=== PATIENT | female | born 2000 | race Caucasian/White ===

== ENCOUNTER 2021-04-18 00:56 | Emergency (ER) | payer BC, SELFPAY ==
[2021-04-18] VITALS (17 sets, daily range): BP systolic 96–122; BP diastolic 64–91; PULSE 96; RESP 16; TEMP 36.6–36.8; O2SAT 98–100
--- NOTE | ~2021-04-18 | CT_ITS ---
EXAMINATION: CT abdomen pelvis w con DATE: 04/18/2021 03:12 INDICATION: Right upper quadrant abdominal pain. Epigastric abdominal pain. Nausea and vomiting. TECHNIQUE: Computed tomography (CT) of the abdomen and pelvis was performed with 100 mL Omnipaque 350 intravenous contrast. Automated exposure control and iterative reconstruction technique were employe d. The dose-length product was 1070.30 mGy-cm. COMPARISON: None. FINDINGS: The visualized portions of the lung bases demonstrate minimal atelectasis. There is a 4 mm nodule left lower lobe, likely benign. No pleural effusion. The heart size is normal. No pericardial effusion. The liver, gallbladder, spleen, pancreas, adrenal glands, and kidneys are normal. There are no dilated loops of bowel. The appendix is normal. There are no pathologically enlarged lymph nodes. There is no free intraperitoneal fluid. There is mild thoracolumbar spondylosis. IMPRESSION: 1. No etiology for the patient's symptoms. Reviewed, dictated and finalized at location A. LE AIR VALVE TESTER
--- NOTE | 2021-04-18 01:13 | ED.ABDPAIN ---
HPI - Abdominal Pain General Chief Complaint: Abdominal Pain Stated Complaint: Abd pain, n/v Time Seen by Provider: 04/18/21 00:58 Source: patient Mode of arrival: ambulatory Limitations: no limitations History of Present Illness HPI narrative: This is a 21-year-old female who presents to the ED with complaints of sharp cramping epigastric and RUQ abdominal pain that began around 11 PM last night. Patient reports she has had intermittent episodes of this pain over the past 2 months, which have been increasing in frequency and severity. She states she was seen at an outside ED in December 2020 at which point cholecystitis, cholelithiasis, and appendicitis were ruled out. She has tried changing her diet recently without relief. She denies any aggravating or relieving factors to the pain. She has not taken anything for the pain tonight. She also reports having nausea, vomiting, diarrhea. She notes her stool has been very dark brown in color. She denies any bright red rectal bleeding, rectal pain, dysuria, hematuria, urinary frequency, fever, chills, back pain. Related Data Allergies Allergy/AdvReac Type Severity Reaction Status Date / Time No Known Allergies Allergy Verified 04/18/21 01:36 Review of Systems Review of Systems: CONSTITUTIONAL: Denies fever, chills, or sweats. CARDIOVASCULAR: Denies chest pain. GASTROINTESTINAL: Reports epigastric and RUQ abdominal pain, nausea, vomiting, diarrhea. Denies recent constipation, bright red rectal bleeding, rectal pain. GENITOURINARY: Denies dysuria or hematuria. MUSCULOSKELETAL: Denies back pain. NEUROLOGIC: Denies headache, numbness, or weakness. All systems reviewed & are unremarkable except as noted in HPI and below PMFSH Past Medical History Medical History (Updated 04/18/21 @ 04:04 by Carla Solis PA-C) No pertinent past medical history Surgical History Surgical History (Updated 04/18/21 @ 02:01 by Carla Solis PA-C) History of shoulder surgery Social History Social History (Updated 04/18/21 @ 02:01 by Calra Solis PA-C) Smoking status: Never smoker Exam Narrative: GENERAL: Well appearing, well-nourished, non-toxic, in no acute distress. HEAD: Normocephalic, atraumatic. NECK: Supple. No adenopathy, no masses. RESPIRATORY: Airway patent, respirations nonlabored. Clear to auscultation bilaterally, no rales, rhonchi, wheezing. CARDIOVASCULAR: Regular rate and rhythm without murmurs, rubs, or gallops. ABDOMINAL: Soft, moderate tenderness to epigastrium and RUQ, no rebound/guarding, nondistended, no hepatosplenomegaly. Normoactive BS. No CVA tenderness to percussion. MUSCULOSKELETAL: Moves all extremities. Strength/ROM intact without gross deformities or TTP. Left foot in walking boot due to recent history of fracture. SKIN: Warm, dry, normal color. No rashes. NEURO: A&O X3. Speech clear. Cranial nerves II-XII grossly intact. Steady gait. No ataxic movements. PSYCHIATRIC: Appropriate mood and affect. Normal interaction. Course Vital Signs Vital signs: Vital Signs Temperature 98.3 F 04/18/21 01:01 Pulse Rate 96 04/18/21 01:01 Respiratory Rate 16 04/18/21 01:01 Blood Pressure 122/91 H 04/18/21 01:01 Pulse Oximetry 98 04/18/21 01:01 Temperature 98.3 F 04/18/21 01:01 Pulse Rate 96 04/18/21 01:01 Respiratory Rate 16 04/18/21 01:01 Blood Pressure 113/77 04/18/21 02:10 Pulse Oximetry 99 04/18/21 02:33 MDM - Abdominal Pain MDM Narrative Medical decision making narrative: Patient's symptom history, pain, and clinical examination consistent with biliary colic. She has had intermittent episodes of right upper quadrant and epigastric pain over the last couple months. Patient report having several episodes of vomiting prior to arrival to the ED. Symptoms improved with supportive therapy. ED work-up fairly unremarkable. Mild leukocytosis with left shift, likely a stress reaction from vomiting. CT scan without acute findings.
[2021-04-18] MEDS: SODIUM CHLORIDE 0.9% IV 1,000 ML 999 ML IV CONT (01:36)
[2021-04-18] MEDS: ONDANSETRON INJ 4 MG/2 ML VIAL IV PUSH (01:36)
[2021-04-18] MEDS: MORPHINE SULFATE (*CRX) 4 MG/ML INJ IV PUSH (01:37)
[2021-04-18 01:39] LABS: Basophils Absolute Auto 0.1 K/mm3 (0.0-0.1); Basophils Percent Auto 0.4 % (0.2-1.2); Eosinophils Absolute Auto 0.1 K/mm3 (0-0.3); Eosinophils Percent Auto 0.5 % (0-4.4); Hematocrit 38.3 % (37.0-47.0); Immature Granulocyte Absolute 0.03 K/mm3 (0.00-0.031); Immature Granulocyte Percent A 0.2 % (0-0.5); Lymphocytes Absolute Auto 1.83 K/mm3 (0.9-3.2); Mean Corpuscular HGB Conc 33.9 g/dl (32-36); Mean Corpuscular Volume 85.3 fl (80-100); Mean Platelet Volume 10.6 fl (7.4-10.4); Monocytes Absolute Auto 0.9 K/mm3 (0.1-0.6); Monocytes Percent Auto 7.4 % (2.6-8.5); Neutrophils Absolute Auto 9.4 K/mm3 (1.3-6.7); Neutrophils Percent Auto 76.5 % (45.5-73.1); Platelet Count Result 290 k/mm3 (150-375); Red Blood Count 4.49 M/mm3 (4.2-5.4); Red Cell Distribution Width 12.5 % (11.5-14.5); White Blood Count 12.2 K/mm3 (4.5-10.0)
[2021-04-18 01:44] LABS: Add Urine Microscopic? YES; Appearance Urine Cloudy (Clear); Bilirubin Urine Negative (Negative); Blood Urine 1+ (Negative); Color Urine Yellow (Yellow); Glucose Urine UA Negative (Negative); Ketones Urine Trace mg/dL (Negative); Leukocyte Esterase Ur Negative LEU/UL (Negative); Mucus Urine Rare /lpf; Nitrate Urine Negative (Negative); Protein Urine Negative (Negative); Specific Grav Ur 1.026 (1.001-1.035); Squamous Epithelial Cell Urine Occasional /hpf (Few); Urobilinogen Urine Negative mg/dL (<2.0); WBC Urine 0-3 /hpf
[2021-04-18 01:51] LABS: Alanine Aminotransferase 26 U/L (4-35); Albumin Level 4.9 g/dL (3.5-5.1); Alkaline Phosphatase 86 U/L (38-126); Anion Gap 10 mmol/L (8-16); Aspartate Amino Transferase 28 U/L (14-36); Bilirubin,Total 0.5 mg/dL (0.2-1.3); Blood Urea Nitrogen 10 mg/dL (7-17); Calcium 8.8 mg/dL (8.4-10.2); Carbon Dioxide 21 mmol/L (22-30); Chloride 109 mmol/L (98-107); Estimated CRCL calculation 133 ml/min; Estimated Glomerular Filt Rate > 60; Glucose 104 mg/dL (65-110); Lipase 48 U/L (23-300); Potassium 3.9 mmol/L (3.4-5.0); Sodium 140 mmol/L (137-145)
== END 2021-04-18 04:32 | disposition home or self-care (01) ==
PROVIDERS: Physician Assistant; Emergency Provider Emergency Medicine
DX: K80.50 Calculus of bile duct without cholangitis or cholecystitis without obstruction (principal)
CPT/HCPCS: 36415; 74177; 80053; 81001; 81025; 83690; 85025; 96361; 96365; 96375; 99284; J0131; J2270; J2405; J7030; Q9967

== ENCOUNTER 2021-04-21 12:05 | Outpatient (CLI) | payer BC, SELFPAY ==
--- NOTE | ~2021-04-21 | US_ITS ---
EXAMINATION: US right upper quadrant DATE: 04/21/2021 12:42 INDICATION: Right upper quadrant pain TECHNIQUE: Multiple grayscale and Doppler ultrasound images of the abdomen were obtained. COMPARISON: CT, 04/18/2021 FINDINGS: The head and body of the pancreas are normal. The pancreatic tail is obscured by bowel gas. The liver is normal with normal echogenicity and echotexture. No surface nodularity. Normal hepatope vincent flow in the main portal vein. The gallbladder is normal with no abnormal wall thickening, pericho lecystic fluid or stones. The normal common bile duct measures 3 mm. There was no sonographic Wilson sign. IMPRESSION: 1. No sonographic correlate for the patient's symptoms. Reviewed, dictated and finalized at location B. PING MACHINE OPERATOR
== END 2021-04-21 12:06 | disposition home or self-care (01) ==
LOC: ANHIMG 12:08
PROVIDERS: PCP Emergency Medicine; Visit Provider Emergency Medicine
DX: R10.11 Right upper quadrant pain (principal); D72.829 Elevated white blood cell count, unspecified
CPT/HCPCS: 76705

== ENCOUNTER 2021-05-14 10:28 | Outpatient (CLI) | payer BC, SELFPAY ==
[2021-05-14 10:57] LABS: Amylase 71 U/L (30-110)
== END 2021-05-14 10:29 | disposition home or self-care (01) ==
LOC: ANHSURGERY 10:31
PROVIDERS: PCP Emergency Medicine; Visit Provider Surgery
DX: Z01.812 Encounter for preprocedural laboratory examination (principal); K81.1 Chronic cholecystitis
CPT/HCPCS: 36415; 82150; 86850; 86900; 86901

== ENCOUNTER 2021-05-17 02:27 | Day surgery (SDC) | payer BC, SELFPAY ==
[2021-05-13 13:42] VITALS: BMI 31.8
--- NOTE | 2021-05-13 13:56 | PC.NURSE ---
Report to the Outpatient Waiting Room, entrance under the green pavilion located off [facility], at time __0930 on date _05/17/2021 . OR Time: _1130 . - You and your visitor will be asked a series of questions to screen for COVID 19 for your protection. - A mask is required within the hospital. Preoperative COVID Testing Requirements: No COVID Test needed if: (proof is required; if not received patient will have Rapid Test prior to entry) - Patient has received COVID Vaccine at least 14 days prior to procedure date. Patients may have clear liquids (water, carbonated beverages, clear teas, apple juice) until 3 hours prior to surgery with a maximum of 20 ounces. - No food from midnight until time of surgery. Take the following medications with a SIP of water the morning of surgery: Tylenol or Zofran, if needed Please no make-up, nail divehi, hairspray, perfume, deodorant, or body powder the day of surgery. No jewelry (including any body piercings) or valuables the day of surgery, leave them at home. Please take a shower the morning of, surgery with an antibacterial soap such as Chlorhexidine Gluconate 4% (Hibiclens)-may be purchased over the counter. Wear comfortable, loose fitting clothing. - Jewelry must be removed prior to entering the operating room. Rings and piercings that are not removed may be cut off. - The hospital will not accept responsibility for valuables. - Please leave all valuables, including medications, at home the day of surgery. If you are going home after surgery, a licensed stage driver must drive you home. - NO public transportation without another adult. - We recommend that an adult stay with you for 24 hours following discharge. - We also recommend that you do not drive, make important decision, drink alcoholic beverages, or take any drugs that were not prescribed by your health care provider for at least 24 hours after your discharge time. One visitor will be allowed to accompany the patient into the hospital. Patients visitor will be instructed to remain with patient at all times or leave the building. We will allow the visitor to come back to the postoperative area when patient is ready. Follow any additional instructions given to you from your surgeon. Telephone instructions given to patient and asked if any additional questions and then verbalized understanding. Patient advised to call surgeon office or pre surgery nurse liaison [phone] if any additional questions.
[2021-05-17] VITALS (10 sets, daily range): BP systolic 95–123; BP diastolic 45–81; PULSE 62–87; RESP 14–20; TEMP 36.4–37.2; O2SAT 96–100
[2021-05-17] MEDS: ACETAMINOPHEN 500 MG TABLET 1000 MG PO (10:25)
[2021-05-17] MEDS: LACTATED RINGERS 1,000 ML 30 ML IV CONT ×2 (10:26→12:15)
[2021-05-17] MEDS: KETOROLAC 15 MG/ML VIAL (*BKC) IV PUSH (10:26)
--- NOTE | 2021-05-17 10:31 | WPDANESEPPF ---
Anes - Initial Pre Proc Eval Procedure: Operation Date: 05/17/21 11:30 Proposed Procedures p Laparoscopic Cholecystectomy - Kimmy Colon MD Date/Time: 05/17/21 10:31 Surgeon: Kimmy Colon MD Pre Op Diagnosis: Chronic Cholecystitis Patient Data Age: 21 Gender: F Height: 1.6 m Weight: 81.65 kg Allergies Allergy/AdvReac Type Severity Reaction Status Date / Time No Known Allergies Allergy Verified 04/28/21 09:23 Home Medications Medication Instructions Recorded Confirmed Type ondansetron 4 mg PO Q8H PRN #15 tablet 04/18/21 05/13/21 Rx acetaminophen 325 mg tablet 325 mg PO Q6H PRN 04/23/21 05/13/21 History Patient hx anesthesia problems: post op nausea/vomiting Family hx anesthesia problems: none Results Review: All pre-operative results and documents have been reviewed as part of the pre-operative evaluation. [facility] Past Medical History Medical History Anxiety No pertinent past medical history Surgical History Surgical History H/O knee surgery Bilateral History of ear surgery Tubes 2008 History of shoulder surgery Family History Family History Mother Diabetes mellitus Multiple sclerosis Other CHF (congestive heart failure) Lung cancer Social History Social History Smoking status: Never smoker Second hand tobacco smoke exposure: No Alcohol intake: current Alcohol use details: socially Substance use: never Living arrangements: with roommate(s) Additional living arrangements comments: [place]IVES [place] W/ROOMMATES Spiritual care concerns: No Anes - Eval Final PreProcedure Day of Procedure 05/17/21 10:31 Patient weight: obese Heart: regular rate and rhythm Lungs: clear to auscultation Airway: Mallampati scale class II Neurological: alert and oriented Last oral intake: >/= 8 hours ASA classification: II Emergent: no Anesthetic plan: proceed Anesthesia type and monitoring: general ETT and standard monitoring Results Review: All pre-operative results and documents have been reviewed as part of the pre-operative evaluation. Informed Consent: The patient's anesthetic plan and its attendant risks and benefits were discussed with the patient/family/POA. Questions were solicited and answers provided to the satisfaction of the patient/family/POA.
--- NOTE | 2021-05-17 10:36 | WPDHPUPDATE1 ---
History and Physical Update Update Date/Time: 05/17/21 10:36 History and Physical has been reviewed, including an updated exam of the patient. There are NO changes in the patient's condition. Risks, benefits, and alternatives have been discussed and questions answered. Patient agrees to proceed with procedure.
[2021-05-17] MEDS: SCOPOLAMINE 1.5 MG PATCH TRANSDERM (10:45)
[2021-05-17] MEDS: ceFAZolin 2 GM/D5W 50 ML 2 GM/50 ML BAG IVPB (10:47)
--- NOTE | 2021-05-17 11:29 | W.PM.PROC2 ---
Procedure Note - Detailed Date of Procedure 05/17/21 Pre-op Diagnosis Chronic Cholecystitis Post-op Diagnosis Same Procedure Performed Laparoscopic cholecystectomy Surgeon Kimmy Colon MD Anesthesia General Indications 21 y/o F c chronic cholecystitis Findings chronic cholecystitis Description of Procedure The patient was taken to the operating room placed in the supine position. After adequate induction of general anesthesia, the patient was prepped and draped in normal sterile fashion. A time-out was then performed to verify the patient's identity as well as the procedure being performed. I then made a 5 mm incision in the infraumbilical region. Through this, a Veress needle was placed into the peritoneal cavity and CO2 gas was then insufflated. After adequate pneumoperitoneum was achieved, the Veress needle was removed and a 5 mm optiview trocar was placed through this incision under direct visualization. I then placed the laparoscope through this trocar site and under direct visualization placed a further 12 mm subxiphoid port as well as 2 additional 5 mm ports in the right upper abdomen. The gallbladder was then identified and was noted to be moderately inflamed and distended. I was able to place a grasper at the dome of the gallbladder and this was retracted anterior and cephalad up over the liver. A 2nd retractor was then placed at the infundibulum and retracted laterally, this allowed visualization of the triangle of Calot. I then was able to visualize the cystic duct in its entirety from its proximal insertion into the gallbladder, to its distal junction with the common hepatic/common bile duct junction. At this point, I carefully skeletonized the proximal cystic duct with the [place] dissector. I then clipped and transected the proximal cystic duct. Next I visualized the cystic artery. Again the artery was skeletonized, clipped, and transected. I then used the Bovie cautery to take down the peritoneal attachments of the gallbladder off the liver bed. Once the gallbladder specimen was completely detached, an endo-pouch was placed through the 12 mm port site. I then placed the gallbladder specimen into the Endo pouch and removed the endo-pouch from the 12 mm port site. The specimen will now be sent to pathology for further review. I then copiously irrigated the right upper quadrant. Hemostasis was noted in the liver bed, the clips were noted to be in good position on both the cystic duct stump and the cystic artery stump. No other pathology was noted in the right upper quadrant. I then moved the laparoscope to the subxiphoid port. No iatrogenic injury or other pathology was noted in the lower abdomen. I then closed the 12 mm trocar site under direct visualization using the Phill cone and 0 Vicryl suture. At this point, the abdomen was desufflated and all ports removed. All port sites were then closed with 4.O Monocryl subcuticular sutures. Dermabond was placed on each incision. The patient tolerated the procedure well, was extubated in the operating room postoperative and will be transferred to the recovery room in stable condition Estimated Blood Loss 5 Drains No Packing No Pathology Yes Complications No immediate complications Condition Stable Disposition PACU
[2021-05-17] MEDS: MEPERIDINE HCL INJ (*CRX) 50 MG/ML AMPUL 25 MG IV PUSH (11:45)
[2021-05-17] MEDS: fentaNYL CITRATE INJ (*CRX) 100 MCG/2 ML VIAL 25 MCG IV PUSH ×4 (12:08→12:25)
[2021-05-17] MEDS: ONDANSETRON INJ 4 MG/2 ML VIAL IV PUSH (12:47)
== END 2021-05-17 14:17 | disposition home or self-care (01) ==
PROVIDERS: PCP Emergency Medicine; Visit Provider Surgery
PROC: 0FT44ZZ Resection of Gallbladder, Percutaneous Endoscopic Approach (ICD-10-PCS; CPT 47562; principal; 2021-05-17 11:30)
DX: K81.1 Chronic cholecystitis (principal); E66.9 Obesity, unspecified; Z68.33 Body mass index [BMI] 33.0-33.9, adult
CPT/HCPCS: 47562; 36415; 82150; 86850; 86900; 86901; 88304; A9270; J0690; J1100; J1885; J2175; J2250; J2270; J2405; J2704; J3010; J7030; J7120

== ENCOUNTER 2023-09-06 11:32 | Emergency (ER) | payer OTHER, BC, SELFPAY ==
--- NOTE | ~2023-09-06 | XR_ITS ---
XR hand RT min 3V 09/06/2023 12:21 INDICATION: Right hand pain PROCEDURE: 3 views right hand COMPARISON: No prior studies for comparison. FINDINGS: Fracture, dislocation or subluxation is not identified. The soft tissues appear within norm al limits. No foreign bodies are identified. IMPRESSION: 1: NO ACUTE BONE OR JOINT ABNORMALITY IDENTIFIED. Reviewed, dictated and finalized at location B.
[2023-09-06 11:51] VITALS: BP 114/75; PULSE 76; RESP 16; TEMP 36.6; O2SAT 99
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
== END 2023-09-06 13:14 | disposition home or self-care (01) ==
PROVIDERS: Emergency Provider Nurse Practitioner Family; Referring Provider Emergency Medicine
DX: S69.91XA Unspecified injury of right wrist, hand and finger(s), initial encounter (principal); Y08.09XA Assault by strike by other specified type of sport equipment, initial encounter; Y99.0 Civilian activity done for income or pay
CPT/HCPCS: 73130; 99213; G0463

== ENCOUNTER 2024-12-03 15:55 | Emergency (ER) | payer OTHER, SELFPAY ==
--- NOTE | ~2024-12-03 | XR_ITS ---
EXAMINATION: XR foot LT min 3V, 12/03/2024 16:03 CDT HISTORY: injury two weeks ago/pain distal foot COMPARISON: No comparisons available. Findings: No acute fracture or malalignment. No significant degenerative changes. Soft tissues unremarkable. Impression: No acute fracture or malalignment. Reviewed, dictated and finalized at location P. Impression: No acute fracture or malalignment.
[2024-12-03 16:00] VITALS: BP 126/83; PULSE 75; RESP 20; TEMP 36.6; O2SAT 100
--- NOTE | 2024-12-03 16:04 | ED_ITS ---
HPI - Extremity Injury (Lower) General Chief Complaint: Extremity Injury, Lower Stated Complaint: L foot pain Time Seen by Provider: 12/03/24 16:16 Source: patient and RN notes reviewed Mode of arrival: ambulatory Limitations: no limitations History of Present Illness HPI Narrative: 24-year-old female presents with concern for left foot pain. Reports 2 weeks ago she hyperflexed the foot since then has been having pain to the dorsal foot near the digits. She reports pain at baseline and worsening pain with flexion or weight-bearing. She has been taking ibuprofen, elevating and using ice without relief. She denies decreased strength, sensation. MD complaint: foot injury Related Data Home Medications ?Medication ?Instructions ?Recorded ?Confirmed ?Last Taken ?Type bupropion HCl 150 mg 24 hr tablet, mg PO 12/03/24 Unk nown History extended release escitalopram oxalate 20 mg tablet mg 12/03/24 Unknown History Allergies Allergy/AdvReac Type Severity Reaction Status Date / Time No Known Allergies Allergy Verified 12/03/24 16:09 Review of Systems Review of Systems: CONSTITUTIONAL: Denies malaise, chills, sweats, or fever. SKIN: Denies rash or itching, open skin, laceration, abrasion, redness, warmth, swelling. MUSCULOSKELETAL: Reports left foot pain NEUROLOGIC: Denies numbness, weakness All systems reviewed & are unremarkable except as noted in HPI and below PMFSH Past Medical History Medical History Anxiety No pertinent past medical history Surgical History Surgical History H/O knee surgery Bilateral History of ear surgery Tubes 2008 History of shoulder surgery Family History Family History Mother Diabetes mellitus Multiple sclerosis Other CHF (congestive heart failure) Lung cancer Social History Social History Smoking status: Never smoker Second hand tobacco smoke exposure: No Alcohol intake: former Alcohol use details: socially Substance use: never Living arrangements: with roommate(s) Additional living arrangements comments: LIVES IN [place] W/ROOMMATES Occupation/Education: student Spiritual care concerns: No Comments At time of signature, agree with nursing past medical, surgical, social and family history. There is no relevant family history pertinent to the presenting complaint Exam Narrative: GENERAL: Well-appearing, well-nourished, and in no acute distress. HEAD: Normocephalic, atraumatic. EYES: PERRLA, conjunctivae clear NECK: Supple. CHEST: Speaks in full sentences. No respiratory distress. HEART: Regular rate and rhythm. Normal and equal peripheral pulses. EXTREMITIES: Left foot and digits have grossly normal strength and sensation, grossly normal range of motion. No edema or ecchymosis. Normal sensation with sensitivity to light touch and pain. Dorsal foot tenderness. No open wounds, no skin tenting, no devitalized tissue or atrophy, no trophic changes, no obvious deformity, alignment normal, nearby joints and structures intact. Distal pulses palpable and equal bilaterally, skin warm, dry, pink. Capillary refill less than 3 seconds. SKIN: Warm, dry, no rash. NEURO: Alert and oriented x3. PSYCH: Normal mood and affect Course Course Emergency Course: Patient is aware of diagnosis, understands and agrees to treatment plan. Anticipatory guidance given. Patient agrees to follow-up as directed and is aware of reasons to seek care at the emergency department. Portions of this record may have been created with voice recognition software Level of Care: Express Care Visit Vital Signs Vital signs: Reviewed. MDM - Extremity Injury (Lower) MDM Narrative Medical decision making narrative: The patient was evaluated by myself in the express care. History is obtained from patient who is an independent historian and physical exam was performed.? Available medical records were reviewed at this time. ? Exam findings show no acute concerns or changes; patient is non-toxic appearing and is in no distress. Patient is appropriate for outpatient treatment and follow-up. ? I have evaluated and discussed social determinants of health with the patient that could potentially impact subsequent diagnosis and treatment plans. ? Patients injury and pain is consistent with musculoskeletal etiology. No signs of neurological or vascular compromise on exam. Compartments and tissues are soft without signs of compartment syndrome. Pain is felt appropriate for further evaluation on an outpatient basis. Imaging Data My impression: Images reviewed, interpreted by radiologist, agree, see report. Radiologist's impression: EXAMINATION: XR foot LT min 3V, 12/03/2024 16:03 CDT HISTORY: injury two weeks ago/pain distal foot COMPARISON: No comparisons available. Findings: No acute fracture or malalignment. No significant degenerative changes. Soft tissues unremarkable. Impression: No acute fracture or malalignment. Critical Care Time Critical Care Time Critical Care Time: No Discharge Plan Discharge Clinical Impression: Foot sprain Patient Disposition: Home Condition: Stable Instructions: Foot Sprain (ED) Additional Instructions: Avoid activities that cause pain until the pain subsides. Ice to the area 20-30 minutes 4-6 times a day Elevate above heart Elastic wrap and orthopedics shoe as directed for comfort for the next 5-7 days Tylenol for lesser pain Ibuprofen as needed for inflammation Follow up with your orthopedics for further evaluation If the condition worsens with numbness, tingling, decrease sensation with weakness seek treatment in the emergency room immediately. Patient Language: [place] Prescriptions: No Action escitalopram oxalate 20 mg tablet bupropion HCl 150 mg tablet extended release 24 hr PO Follow-up/Referrals: PHYSICIAN,ENROLLMENT REPRESENTATIVE [Primary Care Provider, Internal Medicine] Juan Louie MD [Physician, Orthopedics] Referral Note: foot sprain 2 weeks ago, still painful Time of Disposition: 16:25
--- OUTSIDE RECORDS SUMMARY | 2024-12-03 19:39 | XMS_ITS | Clinical Summary ---
Author Organization [facility] Address [address] [place] [address] Care Team Providers Care Security Guard Name Role Phone Jason Woods MD Primary Care Provider [phone] Source Comments [facility],non-owned Affiliates and Associated Physician Practices is amultiple site organization consisting of ambulatory clinics and hospital sitesin [place], [place], [place] and [place]. This disclosure is being madepursuant to the Care Everywhere program and may not contain all information available regarding this patient. Last updated 11/03/17.12Bis Allergies No known active allergies Medications * Be aware that medications may not be up to date on this document. Alwaysverify current medications with the patient. methylPREDNISol one (MEDROL DOSEPAK) 4 MG tablet Take by mouth as directed Follow package insert dosing for six day supply. 21 tablet 12/11/2020 Active ibuprofen (MOTRIN) 800 MG tablet Take 1 (one) tablet by mouth every 6 hours as needed for Pain 30 tablet 12/11/2020 Active baclofen (LIORESAL) 10 MG tablet Take 1 (one) tablet by mouth 2 times daily May cause drowsiness. 20 tablet 12/11/2020 Active Social History Tobacco Use Types Packs/Day Years Used Date Smoking Tobacco: Never Smokeless Tobacco: Never Alcohol Use Standard Drinks/Week Comments Yes 0 (1 standard drink = 0.6 oz pur e alcohol) socially Comments No Sex and Gender Information Value Date Recorded Sex Assigned at Not on file Legal Sex Female 9:27 PM CDT Gender Identity Not on file Sexual Orientation Not on file Last Filed Vital Signs Vital Sign Reading Time Taken Comments Blood Pressure 101/66 12/11/2020 12:11 PM CDT Pulse 85 12/11/2020 12:11 PM CDT Temperature 36.7 C (98.1 F) 12/11/2020 12:11 PM CDT Respiratory Rate 16 12/11/2020 12:11 PM CDT Oxygen Saturation 100% 12/11/2020 12:11 PM CDT Inhaled Oxygen Concentration - - Weight 81.6 kg (180 lb) 12/11/2020 12:11 PM CDT Height 160 cm (5' 3) 12/11/2020 12:11 PM CDT Body Mass Index 31.89 12/11/2020 12:11 PM CDT Plan of Treatment Health Maintenance Due Date Last Done Comments HIV SCREENING 2013 HPV VACCINE (1 - 3-dose series) 2013 HEPATITIS C SCREENING 02/05/2016 DTAP/TDAP/TD VACCINES (1 - Tdap) 2017 HEPATITIS B VACCINE (1 of 3 - 19+ 3-dose series) 2017 DEPRESSION SCREENING 02/14/2024 COVID-19 VACCINE (2 - 2024-2 6 season) 2024 04/30/2020 INFLUENZA VACCINE (#1) 2024 ZOSTER VACCINE (1 of 2) 02/10/2048 HIB VACCINE Aged Out No longer eligi ble based on patient's age to complete this topic MENINGOCOCCAL (Group B) VACC INE SHARED DECISION-MAKING Aged Out No longer eligibl e based on patient's age to complete this topic MENINGOCOCCAL GROUPS A/C/Y/W VACCINE Aged Out No longer eligible b ased on patient's age to complete this topic PNEUMOCOCCAL VACCINE Aged Out No long er eligible based on patient's age to complete this topic Insurance [facility] ANTHEM ANTHEM Care Teams Security Guard Relationship Specialty Start Date End Date Jason Woods MD [address] [place] [address] PCP - General 05/20/21
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
--- OUTSIDE RECORDS SUMMARY | 2024-12-03 19:41 | XMS_ITS | Encounter Summary ---
Author Organization [facility] Address [address] [place] [address] Care Team Providers Care Quality Assurance Project Manager Name Role Phone Jaiden Mejia MD Primary Care Provider [phone] Jaiden Mejia MD Unavailable [phone] Encounter Details Date Type Department Care Team (Late st Contact Info) Description 05/17/2023 [employer] Message [address] [address] [facility] Schedule Appointment - Annual Physical Social History Tobacco Use Types Packs/Day Years Used Date Smoking Tobacco: Never Passive Smoke Exposure: Never Smokeless Tobacco: Never Comments:Never Smoked Alcohol Use Standard Drinks/Week Comments Not Currently 0 (1 standard drink = 0.6 oz pur e alcohol) PHQ-2 Answer Date Recorded PHQ-2 Score - If the patient scores above 3, please move on to questions 3-9 0 04/06/2021 Comments No Sex and Gender Information Value Date Recorded Sex Assigned at Not on file Legal Sex Female 4:47 PM CDT Gender Identity Not on file Sexual Orientation Not on file documented as of this encounter Plan of Treatment Not on file documented as of this encounter Visit Diagnoses Not on filedocumented in this encounter Additional Health Concerns Assessment Noted Time PHQ-9 Depression Total Score: 0 04/06/19 22 4:10 PM COPYRIGHT CLERK documented as of this encounter Care Teams Quality Assurance Project Manager Relationship Specialty Start Date End Date Jaiden Mejia MD [address] [place] [address] PCP - General FAMILY PRACTICE 11/19/20 Jaiden Mejia MD [address] [place] [address] FAMILY PRACTICE 11/19/20 documented as of this encounter
--- OUTSIDE RECORDS SUMMARY | 2024-12-03 19:41 | XMS_ITS | Clinical Summary ---
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 Unsure of dose Active Multiple Vitamin (MULTIVITAMIN ADULT OR) Take 1 tablet by mouth daily. Active Cholecalciferol (VITAMIN D) 50 MCG (1999 UT) Tab Take 1 tablet by mouth daily. Active Active Problems Problem Noted Date Diagnosed Date Hill-Sachs lesion of right shoulder 11/09/2021 Sprain of acromioclavicular joint, right, initia l encounter 07/20/2021 Non-intractable vomiting with nausea 12/29/2020 Right lower quadrant abdominal pain 12/29/2020 S/P arthroscopy of right shoulder 12/24/2020 Tear of right glenoid labrum, initial encounter 10/08/2020 Superior glenoid labrum lesi on of right shoulder, initial encounter 10/08/2020 Lumbosacral radiculopathy 06/01/2020 Sciatica 06/01/2020 Acute recurrent maxillary sinusitis 06/01/2020 Cough in adult 03/19/2020 Immunizations Immunization Administration Dates Next Due Dtap (Generic) 02/26/2003, 0,1998,06/11 Hepatitis A (Generic) 01/30/2003,05/16/2001 Hepatitis B (Generic: Adult) 1998,06/11/18 99 Hib (Generic) 09/06/1999,1998,1998 MMR (Generic) 02/26/2003,02/23/1999 MODERNA COVID-19 (12+) MRNA, LNP-S, PF, 100 MCG/ 0.5 ML DOSE 04/30/2020 Meningococcal Vac A,C,Y,W-135 Sc 07/05/2018,08/13 Polio Ipv (Generic) 02/26/2003,02/23/1999,1998 Tdap (Generic) 05/25/2010 Varicella Vaccine 09/06/1999 Family History Medical History Relation Comments No Known Problems Brother No Known Problems Father Alzheimers Maternal Grandfather Dementia Maternal Grandfather Heart Maternal Grandfather Stroke Maternal Grandfather Diabetes Mother Multiple Sclerosis Mother Cancer Paternal Grandfather Relation Status Comments Brother Alive Father Alive Maternal Grandfather Maternal Grandmother Mother Alive Paternal Grandfather Paternal Grandmother Alive Social History Tobacco Use Types Packs/Day Years Used Date Smoking Tobacco: Never Passive Smoke Exposure: Never Smokeless Tobacco: Never Tobacco Cessation:Counseling Given: Not Answered Comments:Never Smoked Alcohol Use Standard Drinks/Week Comments [...] Sign Reading Time Taken Comments Blood Pressure 101/71 03/21/2022 1:01 PM SOLE STAINER Pulse 83 03/21/2022 1:01 PM SOLE STAINER Temperature 37.1 C (98.8 F) 03/21/2022 1:01 PM SOLE STAINER Respiratory Rate 18 02/23/2021 4:18 PM SOLE STAINER Oxygen Saturation 97% 03/21/2022 1:01 PM SOLE STAINER Inhaled Oxygen Concentration - - Weight 87.6 kg (193 lb 1.6 oz) 03/21/2022 1:01 P M SOLE STAINER Height 161.3 cm (5' 3.5) 03/21/2022 1:01 PM SOLE STAINER Body Mass Index 33.67 03/21/2022 1:01 PM SOLE STAINER Plan of Treatment Health Maintenance Due Date Last Done Comments Cervical Cancer Screening Pap Smear (Age 21 to 29) Every 3 Years 1998 Cervical Cancer Screening 1998 Hepatitis B Vaccines (3 of 3 - 3-dose series) 01/12/1999 1998, 1998 Annual Physical 2001 HPV Vaccines (1 - 3-dose series) 2013 Hepatitis C 02/10/2016 DTaP, Tdap and Td Vaccines (6 - Td or Tdap) 05/25/2020 05/25/2010, 02/26/2003, 09/06/1999, Additional history exists PHQ-2 (Physician [place]) 02/14/2024 COVID-19 Vaccine ( season) 2024 06/24/2020, 04/30/2020 Influenza Adult (#1) 2024 Hepatitis A Vaccines Completed 01/30/2003, 05/17/19 02 Meningococcal Vaccine Aged Out 07/05/2018, 013 No longer eligible based on patient's age to complete this topic Meningococcal B Vaccine Aged Out No l onger eligible based on patient's age to complete this topic Pneumococcal Vaccine: Pediatrics (0 to 5 Years) and At-Risk Patients (6 to 49 Years) Aged Out No longer eligible based on patient's age to complete this topic RSV Immunizations Under 20 Months Aged Out No longer eligible based on patient's age to complete this topic Medical Devices Implanted Type Area [employer] Mechanic Device Identifier Shelf Expiration Date Model / Serial / Lot [place] [employer] Pushlock Biocomposite 2.9 X 12.5mm - [id number] Implanted:Qty: 2 on 01/04/2021 by Nba Gamble MD at [facility] [place] Right: Shoulder [employer] [id number] 05/13/2022 [id number] / / [id number] Insurance [facility] Care Teams Hand Cloth Cutter Relationship Specialty Start Date End Date Jaiden Mejia MD [address] [facility] [facility] [address] [place] [address] PCP - General FAMILY PRACTICE 11/19/20 Jaiden Mejia MD [address] [facility] [facility] [address] [place] [address] FAMILY PRACTICE 11/19/20
== END 2024-12-03 16:26 | disposition home or self-care (01) ==
PROVIDERS: Emergency Provider Nurse Practitioner
DX: S93.602A Unspecified sprain of left foot, initial encounter (principal); Z79.899 Other long term (current) drug therapy; X50.0XXA Overexertion from strenuous movement or load, initial encounter
CPT/HCPCS: 73630; 99213; G0463